=== PATIENT | female | born 1965 | race African-American/Black ===

== ENCOUNTER 2019-11-15 19:40 | Emergency (ER) | payer OTHER ==
--- NOTE | 2019-11-15 20:11 | EDM.PDOC ---
ED HPI GENERAL MEDICAL PROBLEM - General Chief Complaint: Gastrointestinal Problem Stated Complaint: RECTAL BLEEDING Time Seen by Provider: 11/15/19 19:52 Source of Information: Reports: Patient History Limitations: Reports: No Limitations - History of Present Illness INITIAL COMMENTS - FREE TEXT/NARRATIVE: Ms. Rudd is a very pleasant 54-year-old woman with a past medical history significant for obesity and diabetes, who now presents the ED stating that she has been constipated for the past 10 days. She has been drinking an herbal tea which ordinarily helps, but has not in this case. She states that she had some painless bright red rectal bleeding on 10/27/2019 or 10/28/2019, lasting about 3 days, then had additional painless maroon mucousy rectal bleeding today. She had a small, hard bowel movement today. She states that she has been feeling lightheaded when upright on and off for the past week. No chest pain or palpitations. No recent fever, chills, nausea , vomiting, or watery diarrhea. Here in the ED, the patient is initially found to be tachycardic at 110 bpm, otherwise, she is hemodynamically stable, afebrile, saturating 100% on room air. The patient states that she underwent a single EGD and colonoscopy around 2009, and that both were negative. She has not had a repeat since. The patient states that she Accu-Cheks twice a day, with her usual blood glucose between 110 and 140. Her most recent Accu-Chek was this morning, at 121. The patient's PCP is RANDAL Clemons. Her healthcare educator is Amaya Fletcher RN. - Related Data Allergies Allergy/AdvReac Type Severity Reaction Status Date / Time metformin Allergy Severe Hives Verified 11/15/19 19:54 Home Meds: Home Meds Liraglutide [Victoza] 1.8 mg SUBCUT DAILY 11/15/19 [History] Past Medical History Cardiovascular History: Reports: High Cholesterol (untreated) Genitourinary History: Reports: Urinary Incontinence (stress incontinence) Endocrine/Metabolic History: Reports: Diabetes, Type II, Obesity/BMI 30+ - Past Surgical History HEENT Surgical History: Reports: Oral Surgery (wisdom teeth extraction) GI Surgical History: Reports: Cholecystectomy (2013), Colonoscopy (x 1, around 2009), EGD (x 1, around 2009) Female Surgical History: Reports: Tubal Ligation Social & Family History - Tobacco Use Smoking Status *Q: Never Smoker - Caffeine Use Caffeine Use: Reports: Tea - Alcohol Use Alcohol Use History: Yes Alcohol Use Frequency: Rarely - Recreational Drug Use Recreational Drug Use: No - Living Situation & Occupation Living situation: Reports: Single, with Family 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 ED EXAM, GI/ABD - Physical Exam Exam: See Below Exam Limited By: No Limitations General Appearance: Alert, WD/WN, No Apparent Distress Eyes: Bilateral: Normal Appearance, EOMI Ears: Normal External Exam, Hearing Grossly Normal Nose: Normal Inspection Throat/Mouth: Normal Inspection, Normal Lips, Normal Voice, No Airway Compromise Head: Atraumatic, Normocephalic Neck: Normal Inspection, Full Range of Motion Respiratory/Chest: No Respiratory Distress, Lungs Clear, Normal Breath Sounds, No Accessory Muscle Use Cardiovascular: Normal Peripheral Pulses, Regular Rate, Rhythm, No Edema, No Gallop, No JVD, No Murmur, No Rub GI/Abdominal Exam: Normal Bowel Sounds, Soft, Non-Tender, No Organomegaly, No Distention, No Abnormal Bruit, No Mass (Female) Exam: Deferred Rectal (Female) Exam: Normal Rectal Tone, Heme + Stool (no stool in rectum, but smear grossly heme+), Hemorrhoids (3 nonthrombosed, nontender external) Back Exam: Normal Inspection, Full Range of Motion, NT Extremities: Normal Inspection, Normal Range of Motion, No Pedal Edema, Normal Capillary Refill Neurological: Alert, Oriented, Normal Cognition, No Motor/Sensory Deficits Psychiatric: Normal Affect Skin Exam: Warm, Dry, Intact, Normal Color, No Rash Course - Vital Signs Last Recorded V/S: Last Vital Signs Temp 37.0 C 11/15/19 19:48 Pulse 110 H 11/15/19 19:48 Resp 20 11/15/19 19:48 BP Pulse Ox 100 11/15/19 19:48 Orthostatic Blood Pressure [ 123/78 Standing] Orthostatic Blood Pressure [ 118/72 Supine] - Orders/Labs/Meds Orders: Active Orders 24 hr Category Date Time Status Hemoccult [Fecal Occult Blood Collection] [RC] Care 11/15/19 20:18 Active ASDIRECTED Orthostatic Vital Signs [RC] STAT Care 11/15/19 20:09 Active Labs: Laboratory Tests 11/15/19 11/15/19 11/15/19 Range/Units 20:20 20:20 20:20 WBC 8.71 (3.98-10.04) K/mm3 RBC 5.42 H (3.98-5.22) M/mm3 Hgb 10.1 L (11.2-15.7) gm/dl Hct 34.7 (34.1-44.9) % MCV 64.0 L (79.4-94.8) fl MCH 18.6 L (25.6-32.2) pg MCHC 29.1 L (32.2-35.5) g/dl RDW Std Deviation 40.9 (36.4-46.3) fL Plt Count 314 (182-369) K/mm3 MPV 11.5 (9.4-12.3) fl Neut % (Auto) 60.3 (34.0-71.1) % Lymph % (Auto) 29.2 (19.3-51.7) % Tift % (Auto) 8.0 (4.7-12.5) % Eos % (Auto) 1.8 (0.7-5.8) Baso % (Auto) 0.6 (0.1-1.2) % Neut # (Auto) 5.25 (1.56-6.13) K/mm3 Lymph # (Auto) 2.54 (1.18-3.74) K/mm3 Tift # (Auto) 0.70 H (0.24-0.36) K/mm3 Eos # (Auto) 0.16 (0.04-0.36) K/mm3 Baso # (Auto) 0.05 (0.01-0.08) K/mm3 Manual Slide Review Abnormal smear PT 10.3 (9.7-12.0) SECONDS INR 0.94 APTT 23 (22-31) SECONDS Sodium 135 L (136-145) mEq/L Potassium 4.0 (3.5-5.1) mEq/L Chloride 103 (98-107) mEq/L Carbon Dioxide 21 (21-32) mEq/L Anion Gap 15.0 (5-15) BUN 7 (7-18) mg/dL Creatinine 0.9 (0.55-1.02) mg/dL Est Cr Clr Drug Dosing 60.49 mL/min Estimated GFR (MDRD) > 60 (>60) mL/min BUN/Creatinine Ratio 7.8 L (14-18) Glucose 224 H (74-106) mg/dL Calcium 10.3 H (8.5-10.1) mg/dL Magnesium 1.7 L (1.8-2.4) mg/dl Total Bilirubin 0.3 (0.2-1.0) mg/dL AST 16 (15-37) U/L ALT 23 (14-59) U/L Alkaline Phosphatase 126 H (46-116) U/L Total Protein 8.1 (6.4-8.2) g/dl Albumin 3.6 (3.4-5.0) g/dl Globulin 4.5 gm/dL Albumin/Globulin Ratio 0.8 L (1-2) - Re-Assessments/Exams Free Text/Narrative Re-Assessment/Exam: 11/15/19 20:10 As above, the patient had some rectal bleeding a couple of weeks ago for a few days, then again today, associated with constipation. On examination, she has 3 nonthrombosed external hemorrhoids, and while there was no stool in the rectum , the smear was grossly heme positive. For today's purposes, I have ordered blood work and orthostatics. 11/15/19 20:17 The patient is not orthostatic. 11/15/19 21:03 The patient's CBC is remarkable for a Hgb mildly depressed at 10.1, but with a Hct normal at 34.7. The remainder of her CBC is unremarkable. Her CMP is remarkable for a sodium slightly depressed at 135, and a blood glucose elevated at 224. Her alkaline phosphatase is slightly elevated at 126, with the remainder of her CMP being unremarkable. Her magnesium level is slightly depressed at 1.7. Her coags are within normal limits. 11/15/19 21:14 Test results discussed with the patient. As above, hieu's labs are grossly unremarkable. I explained to the patient that she needs a colonoscopy to determine the source of her bleeding - whether from an internal hemorrhoid, diverticulosis, a colon polyp, telangiectasias, or an AV malformation. A colonoscopy will require a prep, and therefore cannot be done from the ED. The patient understood that. Since she sees Amaya Fletcher RN, as a healthcare educator, she would like to follow-up with Dr. Fletcher to arrange for a colonoscopy. In the meantime, I recommended that the patient purchase an [id number] enema +/- glycerine suppositories, to help relieve her current constipation. She should then begin taking [id number] Metamucil with plenty of water, to help prevent constipation, going forward. Departure - Departure Time of Disposition: 21:19 Disposition: Home, Self-Care 01 Condition: Good Clinical Impression: Lower GI bleed, Constipation - Discharge Information *PRESCRIPTION DRUG MONITORING PROGRAM REVIEWED*: Not Applicable *COPY OF PRESCRIPTION DRUG MONITORING REPORT IN PATIENT SMITH: Not Applicable Instructions: Constipation, Adult, [id number], Gastrointestinal Bleeding Referrals: Evelyn Mendez PA-C [Primary Care Provider] - Tyron Fletcher MD [Physician] - Forms: ED Department Discharge Additional Instructions: You were seen in the emergency room for recurrent rectal bleeding associated with constipation. Work-up in the ER included blood work and positional blood pressure checks. Your entire work-up was unremarkable. You did not require a blood transfusion or IV fluid. As explained, we are not able to determine the source of your bleeding. In order to do so, you need to undergo a colonoscopy. Please follow-up with Dr. Quincy Fletcher to arrange for an outpatient colonoscopy. To relieve your current constipation, we recommend that you purchase an over-the -counter enema, with or without some glycerin suppositories, and use as directed. To prevent constipation in the future, we recommend that you purchase over-the- counter Metamucil, and take with a lots of water, as directed. If any other problems, please do not hesitate to return to the ER. Sepsis Event Note - Evaluation Sepsis Screening Result: No Definite Risk - Focused Exam Vital Signs: Vital Signs Temp Pulse Resp Pulse Ox 11/15/19 19:48 37.0 C 110 H 20 100 Date Exam was Performed: 11/15/19 Time Exam was Performed: 23:44 - My Orders Last 24 Hours: My Active Orders 11/15/19 20:09 Orthostatic Vital Signs [RC] STAT 11/15/19 20:18 Hemoccult [Fecal Occult Blood Collection] [RC] ASDIRECTED - Assessment/Plan Last 24 Hours: My Active Orders 11/15/19 20:09 Orthostatic Vital Signs [RC] STAT 11/15/19 20:18 Hemoccult [Fecal Occult Blood Collection] [RC] ASDIRECTED
== END 2019-11-15 21:45 | disposition home or self-care (01) ==
LOC: JD.ED 19:40
DX: K92.2 Gastrointestinal hemorrhage, unspecified (principal); K59.00 Constipation, unspecified; E66.9 Obesity, unspecified; Z68.41 Body mass index [BMI] 40.0-44.9, adult; E11.9 Type 2 diabetes mellitus without complications; Z88.8 Allergy status to other drugs, medicaments and biological substances; Z79.84 Long term (current) use of oral hypoglycemic drugs
CPT/HCPCS: 36415; 80053; 83735; 85025; 85610; 85730; 99282; 99284

== ENCOUNTER 2020-01-05 06:45 | Day surgery (SDC) | payer OTHER ==
[~2020-01-05 06:45] MED LIST: Lactated Ringers 1,000 ML IV SCH; Lidocaine 1%/Sod Bicarbonate in NS 8.4% 1 ML Syringe IDERM PRN; Sodium Chloride 0.9% 10 ML Syringe FLUSH PRN
--- NOTE | 2020-01-05 07:28 | PCM.PREANE ---
Preanesthetic Assessment - Procedure Proposed Procedure: Colonoscopy - Anesthesia/Transfusion/Family Hx Anesthesia History: Prior Anesthesia Without Reaction Family History of Anesthesia Reaction: No Transfusion History: No Prior Transfusion(s) - Review of Systems General: No Symptoms Pulmonary: No Symptoms Cardiovascular: Dyspnea on Exertion Gastrointestinal: No Symptoms Neurological: No Symptoms Other: Reports: Diabetes (156 @ 0715), Thyroid Problems (hyperthyroid) - Physical Assessment NPO Status Date: 01/04/20 NPO Status Time: 20:00 Vital Signs: Last Vital Signs Temp 36.7 C 01/05/20 06:50 Pulse 97 01/05/20 06:50 Resp 16 01/05/20 06:50 BP 130/66 01/05/20 06:50 Pulse Ox 98 01/05/20 06:50 Height: 1.6 m Weight: 112.491 kg ASA Class: 2 Mental Status: Alert & Oriented x3 Airway Class: Mallampati = 1 Dentition: Reports: [place](s), Broken Tooth/Teeth (front top), Caries Thyro-Mental Finger Breadths: 2 Mouth Opening Finger Breadths: 3 ROM/Head Extension: Full Lungs: Clear to Auscultation, Normal Respiratory Effort Cardiovascular: Regular Rate, Regular Rhythm - Lab Values: Laboratory Last Values POC Glucose 153 mg/dL (70-105) H 01/05/20 07:09 COVID-19 PCR Not detected (NOT DETECT) 01/02/20 12:30 - Allergies Allergies/Adverse Reactions: Allergies Allergy/AdvReac Type Severity Reaction Status Date / Time metformin Allergy Mild Hives Verified 01/05/20 07:17 metronidazole [From Flagyl] Allergy Cannot Verified 01/05/20 07:17 Remember pioglitazone [From Actos] Allergy Itching Verified 01/05/20 07:17 - Anesthesia Plan Pre-Op Medication Ordered: None - Acknowledgements Anesthesia Type Planned: MAC Pt an Appropriate Candidate for the Planned Anesthesia: Yes Alternatives and Risks of Anesthesia Discussed w Pt/Guardian: Yes Pt/Guardian Understands and Agrees with Anesthesia Plan: Yes PreAnesthesia Questionnaire HEENT History: Reports: Impaired Vision Cardiovascular History: Reports: High Cholesterol Respiratory History: Reports: None Gastrointestinal History: Reports: Cholelithiasis, GERD, Other (See Below) Other Gastrointestinal History: hematochezia, constipation Genitourinary History: Reports: Urinary Incontinence MORTGAGE ASSISTANT History: Reports: None Musculoskeletal History: Reports: None Neurological History: Reports: None Psychiatric History: Reports: None Endocrine/Metabolic History: Reports: Diabetes, Type II, Hyperthyroidism, Obesity/BMI 30+ Hematologic History: Reports: None Immunologic History: Reports: None Oncologic (Cancer) History: Reports: None Dermatologic History: Reports: None - Infectious Disease History Infectious Disease History: Reports: None - Past Surgical History Head Surgeries/Procedures: Reports: None HEENT Surgical History: Reports: Oral Surgery Other HEENT Surgeries/Procedures: wisdom teeth Cardiovascular Surgical History: Reports: None Respiratory Surgical History: Reports: None GI Surgical History: Reports: Cholecystectomy, Colonoscopy, EGD Female Surgical History: Reports: Tubal Ligation Male Surgical History: Reports: None Neurological Surgical History: Reports: None Musculoskeletal Surgical History: Reports: None Oncologic Surgical History: Reports: None Dermatological Surgical History: Reports: None - SUBSTANCE USE Smoking Status *Q: Never Smoker Tobacco Use Within Last Twelve Months: No Second Hand Smoke Exposure: No Days Per Week of Alcohol Use: 1 Number of Drinks Per Day: 0 Total Drinks Per Week: 0 Recreational Drug Use History: No - HOME MEDS Home Medications: Home Meds Ozempic 1 mg SQ Q7D 01/04/20 [History] Rosuvastatin Calcium 20 mg PO DAILY 01/04/20 [History] - CURRENT (IN HOUSE) MEDS Current Meds: Current Medications Lactated Ringer's (Ringers, Lactated) 1,000 mls @ 125 mls/hr IV ASDIRECTED NIK Stop: 01/05/20 23:00 Last Admin: 01/05/20 07:22 Dose: 125 mls/hr Documented by: Lidocaine/Sodium Bicarbonate (Buffered Lidocaine 1% In Ns 8.4%) 0.25 ml IDERM ONETIME PRN PRN Reason: Prior to IV Start Stop: 01/05/20 18:00 Last Admin: 01/05/20 07:22 Dose: 0.25 ml Documented by: Sodium Chloride (Saline Flush) 10 ml FLUSH ASDIRECTED PRN PRN Reason: Keep Vein Open Stop: 01/05/20 18:00
[2020-01-05] MEDS ORDERED: fentaNYL 100 MCG/2 ML SDV ONE (07:40)
[2020-01-05] MEDS ORDERED: Propofol 200 MG/20 ML SDV ONE ×2 (07:40→08:04)
[2020-01-05] MEDS ORDERED: Midazolam 1 MG/ML 2 ML SDV ONE (07:40)
[2020-01-05] MEDS ORDERED: Ondansetron 4 MG/2 ML SDV ONE (07:40)
[2020-01-05] MEDS ORDERED: Lidocaine 1% 4 ML ONE (07:43)
[2020-01-05] MEDS ORDERED: Labetalol 100 MG/20 ML MDV ONE (08:16)
--- NOTE | 2020-01-05 08:35 | PCM48HPAN ---
Post Anesthesia Note - EVALUATION WITHIN 48HRS OF ANESTHETIC Vital Signs in Normal Range: Yes Patient Participated in Evaluation: Yes Respiratory Function Stable: Yes Airway Patent: Yes Cardiovascular Function Stable: Yes Hydration Status Stable: Yes Pain Control Satisfactory: Yes Nausea and Vomiting Control Satisfactory: Yes Mental Status Recovered: Yes Vital Signs: Last Vital Signs Temp 36.7 C 01/05/20 06:50 Pulse 97 01/05/20 06:50 Resp 16 01/05/20 06:50 BP 130/66 01/05/20 06:50 Pulse Ox 98 01/05/20 06:50 - COMMENTS/OBSERVATIONS Free Text/Narrative:: no anesthesia complications noted
--- NOTE | 2020-01-05 08:37 | PCM.OPNOTE ---
- General Post-Op/Procedure Note Date of Surgery/Procedure: 01/05/20 Operative Procedure(s): Colonoscopy with cold forceps biopsy Findings: Anal Fissure, Grade I internal hemorrhoids, Mild Diverticulosis, Colon polyps x 3 Pre Op Diagnosis: Hematochezia, Chronic Constipation Post-Op Diagnosis: Same Anesthesia Technique: MAC Primary Surgeon: Kaushal Lam Anesthesia Provider: Clemente Brothers EBL in mLs: 5 Complications: None Condition: Good Free Text/Narrative:: After the patient gave verbal and written consent she was placed on blood pressure and pulse ox monitoring. She was given iv sedation which she tolerated well. The olympus colonoscope was inserted per rectum and advanced to the cecum without difficulty. The ileocecal valve and appendiceal orfice were imaged documenting cecal intubation. The scope was slowly withdrawn. The mucosal surfaces were carefully examined. The prep was good, the views were good. Random colon forceps biopsies were taken of the ascending, transverse, sigmoid and rectum. Mild sigmoid diverticulosis was noted. There were 3 small 2-3 mm colon polyps in the diverticulosis and rectum noted and removed with cold forceps biopsy. The scope was retroflexed in the rectum and Grade I internal hemorrhoids were noted. The scope was removed, an external anal examination showed anal fissuring. There was hemostasis at the end of the procedure the patient tolerated the procedure well without complication.
== END 2020-01-05 09:15 | disposition home or self-care (01) ==
LOC: JD.SDS 06:45
PROVIDERS: ATTEND Family Medicine
DX: D12.8 Benign neoplasm of rectum (principal); K63.89 Other specified diseases of intestine; K57.30 Diverticulosis of large intestine without perforation or abscess without bleeding; K64.0 First degree hemorrhoids; K60.2 Anal fissure, unspecified; K59.09 Other constipation; E21.3 Hyperparathyroidism, unspecified; E11.9 Type 2 diabetes mellitus without complications; K21.9 Gastro-esophageal reflux disease without esophagitis; E78.00 Pure hypercholesterolemia, unspecified; E66.9 Obesity, unspecified; Z90.49 Acquired absence of other specified parts of digestive tract; Z88.8 Allergy status to other drugs, medicaments and biological substances; Z79.899 Other long term (current) drug therapy; Z11.59 Encounter for screening for other viral diseases; Z68.42 Body mass index [BMI] 45.0-49.9, adult
CPT/HCPCS: 45380; 82962; 87635; J2001; J2250; J2405; J2704; J3010; J3490; J7120; 00811; U0002

== ENCOUNTER 2021-01-26 10:40 | Emergency (ER) | payer MEDICAID, OTHER ==
--- NOTE | 2021-01-26 11:11 | EDM.PDOC ---
ED HPI GENERAL MEDICAL PROBLEM - General Chief Complaint: Abdominal Pain Stated Complaint: ABDOMINAL PAIN Time Seen by Provider: 01/26/21 11:01 - History of Present Illness INITIAL COMMENTS - FREE TEXT/NARRATIVE: 55-year-old female presents to the emergency room for further evaluation of abdominal pain. She was sent here from the walk-in clinic. Patient is going on a 2-day history of epigastric discomfort and periumbilical d iscomfort. Patient has not had symptoms like this in the past she is not had reflux in the past. She was evaluated in the walk-in clinic today and found to have a very elevated C-reactive protein lipase was normal. Dr. Pink did call me, and it sounds like the patient would benefit from a CAT scan for further evaluation. Lab work scratch that Lab work done at [place] [facility] count is 9900 hemoglobin hematocrit of 8.8 and 29.7% respectively platelet count 250,000 automated differential is normal chemistry showed glucose of 281 BUN 8 creatinine 0.89 sodium 132 potassium 4.1 chloride 103 CO2 18 calcium 10.8 total protein 7.6 albumin 3.8 alk phos elevated at 213 transaminases are elevated AST is 224 ALT 241. epigastric Pain Score (Numeric/FACES): 5 - Related Data Allergies Allergy/AdvReac Type Severity Reaction Status Date / Time metformin Allergy Mild Hives Verified 01/26/21 10:52 metronidazole [From Flagyl] Allergy Cannot Verified 01/26/21 10:52 Remember pioglitazone [From Actos] Allergy Itching Verified 01/26/21 10:52 Home Meds: Home Meds Ozempic 1 mg SQ Q7D 01/04/20 [History] Rosuvastatin Calcium 20 mg PO DAILY 01/04/20 [History] Pantoprazole Sodium [Protonix] 40 mg PO QAM #30 tablet. 01/26/21 [Rx] Sucralfate [Carafate] 1 gm PO QIDACANDBED #30 tab 01/26/21 [Rx] Past Medical History HEENT History: Reports: Impaired Vision Cardiovascular History: Reports: High Cholesterol Respiratory History: Reports: None Gastrointestinal History: Reports: Cholelithiasis, GERD, Other (See Below) Other Gastrointestinal History: hematochezia, constipation Genitourinary History: Reports: Urinary Incontinence DEVELOPMENT EDUCATOR History: Reports: None Musculoskeletal History: Reports: None Neurological History: Reports: None Psychiatric History: Reports: None Endocrine/Metabolic History: Reports: Diabetes, Type II, Hyperthyroidism, Obesity/BMI 30+ Hematologic History: Reports: None Immunologic History: Reports: None Oncologic (Cancer) History: Reports: None Dermatologic History: Reports: None - Infectious Disease History Infectious Disease History: Reports: None - Past Surgical History Head Surgeries/Procedures: Reports: None HEENT Surgical History: Reports: Oral Surgery Other HEENT Surgeries/Procedures: wisdom teeth Cardiovascular Surgical History: Reports: None Respiratory Surgical History: Reports: None GI Surgical History: Reports: Cholecystectomy, Colonoscopy, EGD Female Surgical History: Reports: Tubal Ligation Neurological Surgical History: Reports: None Musculoskeletal Surgical History: Reports: None Oncologic Surgical History: Reports: None Dermatological Surgical History: Reports: None Social & Family History - Tobacco Use Tobacco Use Status *Q: Never Tobacco User - Caffeine Use Caffeine Use: Reports: None - Recreational Drug Use Recreational Drug Use: No - Living Situation & Occupation Living situation: Reports: Single, with Family 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) ED ROS GENERAL - Review of Systems Review Of Systems: See Below Constitutional: Reports: No Symptoms. Denies: Fever, Chills HEENT: Reports: No Symptoms Respiratory: Reports: No Symptoms Cardiovascular: Reports: No Symptoms Endocrine: Reports: No Symptoms GI/Abdominal: Reports: Abdominal Pain ED EXAM, GI/ABD - Physical Exam Exam: See Below Exam Limited By: No Limitations General Appearance: Alert, No Apparent Distress, Obese Head: Atraumatic, Normocephalic Neck: Normal Inspection, Supple, Non-Tender, Full Range of Motion Respiratory/Chest: No Respiratory Distress, Lungs Clear, Normal Breath Sounds Cardiovascular: Regular Rate, Rhythm, No Edema, No Murmur GI/Abdominal Exam: Normal Bowel Sounds, Soft, Other (Sniffing and upper abdominal pain she will not let me palpate does not appear to have rebound or rigidity the however) #1 Interpretation EKG Date: 01/26/21 Rhythm: NSR Rate (Beats/Min): 74 [place]: Other (Borderline left axis) P-Wave: Present (Prominent R wave) QRS: Other (Prominent R wave V2 consider early transition versus left ventricular hypertrophy) ST-T: Other (Minimal nonspecific nondiagnostic changes) QT: Normal Comparison: NA - No Prior EKG EKG Interpretation Comments: Abnormal EKG Course - Vital Signs Last Recorded V/S: Last Vital Signs Temp 36.6 C 01/26/21 10:49 Pulse 83 01/26/21 10:49 Resp 18 01/26/21 10:49 BP 147/80 H 01/26/21 10:49 Pulse Ox 95 01/26/21 10:49 - Orders/Labs/Meds Orders: Active Orders 24 hr Category Date Time Status EKG Documentation Completion [RC] STAT Care 01/26/21 11:27 Active Abdomen Pelvis w Cont [CT] Stat Exams 01/26/21 11:12 Taken Lactated Ringers [Ringers, Lactated] 1,000 ml Med 01/26/21 11:15 Active IV ASDIRECTED Sodium Chloride 0.9% [Saline Flush] Med 01/26/21 11:30 Active 10 ml FLUSH ASDIRECTED Medication Orders Lactated Ringer's (Ringers, Lactated) 1,000 mls @ 150 mls/hr IV ASDIRECTED NIK Sodium Chloride (Sodium Chloride 0.9% 10 Ml Syringe) 10 ml FLUSH ASDIRECTED NIK Last Admin: 01/26/21 12:49 Dose: 10 ml Documented by: VAL Labs: Laboratory Tests 01/26/21 01/26/21 Range/Units 11:40 16:05 Troponin I < 0.017 (0.00-0.056) ng/mL Urine Color Yellow (Yellow) Urine Appearance Clear (Clear) Urine pH 6.5 (5.0-8.0) Ur Specific [place] 1.015 (1.005-1.030) Urine Protein Negative (Negative) Urine Glucose (UA) 2+ H (Negative) Urine Ketones Negative (Negative) Urine Occult Blood 2+ H (Negative) Urine Nitrite Negative (Negative) Urine Bilirubin Negative (Negative) Urine Urobilinogen 0.2 (0.2-1.0) Ur Leukocyte Esterase Negative (Negative) Urine RBC 0-5 (0-5) /hpf Urine WBC 0-5 (0-5) /hpf Ur Squamous Epith Cells 0-5 (0-5) /hpf Urine Bacteria Few (FEW) /hpf Urine Mucus Few (FEW) /hpf Meds: Medications Generic Name Dose Route Start Last Admin Trade Name Freq PRN Reason Stop Dose Admin Lactated Ringer's 1,000 mls @ 150 mls/hr 01/26/21 11:15 Ringers, Lactated IV ASDIRECTED NIK Sodium Chloride 10 ml 01/26/21 11:30 01/26/21 12:49 Sodium Chloride 0.9% 10 Ml Syringe FLUSH 10 ml ASDIRECTED NIK Administration Discontinued Medications Generic Name Dose Route Start Last Admin Trade Name Adán PRN Reason Stop Dose Admin Al Hydroxide/Mg Hydroxide 30 0 ml 01/26/21 14:01 01/26/21 14:26 ml/ Lidocaine HCl 15 ml PO 01/26/21 14:02 45 ml ONETIME ONE Administration Diatrizoate Meglum/Diatrizoate Sod 45 ml 01/26/21 11:25 01/26/21 12:48 Diatrizoate Meglumine/Diatrizoate Sodium 37% 120 Ml Bottle PO 01/26/21 11:26 45 ml ONETIME ONE Administration Hydromorphone HCl 0.5 mg 01/26/21 11:28 01/26/21 11:43 Hydromorphone 0.5 Mg/0.5 Ml Syringe IVPUSH 01/26/21 11:29 0.5 mg ONETIME ONE Administration Lactated Ringer's 500 mls @ 999 mls/hr 01/26/21 11:14 01/26/21 11:42 Ringers, Lactated IV 01/26/21 11:44 999 mls/hr .BOLUS ONE Administration Iopamidol 100 ml 01/26/21 11:25 01/26/21 12:49 Iopamidol 612 Mg/Ml 100 Ml Bottle IVPUSH 01/26/21 11:26 100 ml ONETIME ONE Administration Iopamidol 50 ml 01/26/21 11:25 01/26/21 12:49 Iopamidol 612 Mg/Ml 50 Ml Sdv IVPUSH 01/26/21 11:26 25 ml ONETIME ONE Administration Ondansetron HCl 4 mg 01/26/21 11:28 01/26/21 11:43 Ondansetron 4 Mg/2 Ml Sdv IVPUSH 01/26/21 11:29 4 mg ONETIME ONE Administration Pantoprazole Sodium 40 mg 01/26/21 17:12 01/26/21 17:36 Pantoprazole 40 Mg Vial IVPUSH 01/26/21 17:13 40 mg ONETIME ONE Administration Sucralfate 1 gm 01/26/21 17:12 01/26/21 17:36 Sucralfate Suspension 1 Gm/10 Ml Cup PO 01/26/21 17:13 1 gm ONETIME ONE Administration - Re-Assessments/Exams Free Text/Narrative Re-Assessment/Exam: 01/26/21 17:58 Work-up was basically started the walk-in clinic over at [place]. I did when I recheck a urinalysis and there is no evidence of infection there she does have 2+ blood noted and 2+ glucose noted she is a diabetic and her blood sugar at [place] was elevated. I did check a troponin and an EKG that is nondiagnostic troponin was normal. Abdominal pelvic CT showed no acute changes. She has some probable uterine leiomyomas postoperative changes from her gallbladder and anterior abdominal wall hernia none containing bowel and a small cyst on the left ovary. Given the patient's history and her physical examination then tried her on a GI cocktail which was remarkably good for her symptoms. At this point the patient be started on Carafate and Protonix we will discharge home with close follow-up in the clinic to discuss all of this with her. She believes the blood in her urine is probably because of her cycle. Departure - Departure Time of Disposition: 18:01 Disposition: Home, Self-Care 01 Clinical Impression: Abdominal pain, Dyspepsia and disorder of function of stomach - Discharge Information Referrals: Evelyn Mendez PA-C [Primary Care Provider] - Forms: ED Department Discharge Additional Instructions: Return to the emergency room with any questions problems or worsening symptoms. You have been started on 2 medications the first 1 is Protonix take this 30 to 60 minutes before your morning meal once daily. While taking the Carafate take this an hour before your morning meal. You have been started on Carafate you will take this for a little over 7 days 4 times daily before each meal and at bedtime. Take this immediately before each meal and at bedtime you are on this to give the Protonix time to take effect. Both your prescriptions have been sent to [facility] in the [employer] [facility]. Follow-up with your regular healthcare provider the middle of this next week for recheck. Sepsis Event Note (ED) - Evaluation Sepsis Screening Result: No Definite Risk - Focused Exam Vital Signs: Vital Signs Temp Pulse Resp BP Pulse Ox 01/26/21 10:49 36.6 C 83 18 147/80 H 95 - My Orders Last 24 Hours: My Active Orders 01/26/21 11:12 Abdomen Pelvis w Cont [CT] Stat 01/26/21 11:15 Lactated Ringers [Ringers, Lactated] 1,000 ml IV ASDIRECTED 01/26/21 11:27 EKG Documentation Completion [RC] STAT 01/26/21 11:30 Sodium Chloride 0.9% [Saline Flush] 10 ml FLUSH ASDIRECTED - Assessment/Plan Last 24 Hours: My Active Orders 01/26/21 11:12 Abdomen Pelvis w Cont [CT] Stat 01/26/21 11:15 Lactated Ringers [Ringers, Lactated] 1,000 ml IV ASDIRECTED 01/26/21 11:27 EKG Documentation Completion [RC] STAT 01/26/21 11:30 Sodium Chloride 0.9% [Saline Flush] 10 ml FLUSH ASDIRECTED
[2021-01-26] MEDS ORDERED: Lactated Ringers 500 ML IV ONE (11:14)
[2021-01-26] MEDS ORDERED: Lactated Ringers 1,000 ML IV SCH (11:15)
[2021-01-26] MEDS ORDERED: Iopamidol 612 MG/ML 50 ML SDV IVPUSH ONE (11:25)
[2021-01-26] MEDS ORDERED: Diatrizoate Meglumine/Diatrizoate Sodium 37% 120 ML Bottle PO ONE (11:25)
[2021-01-26] MEDS ORDERED: Iopamidol 612 MG/ML 100 ML Bottle IVPUSH ONE (11:25)
[2021-01-26] MEDS ORDERED: Ondansetron 4 MG/2 ML SDV IVPUSH ONE (11:28)
[2021-01-26] MEDS ORDERED: HYDROmorphone 0.5 MG/0.5 ML Syringe IVPUSH ONE (11:28)
[2021-01-26] MEDS ORDERED: Sodium Chloride 0.9% 10 ML Syringe FLUSH SCH (11:30)
[2021-01-26] MEDS ORDERED: Alum Hydrox/Mag Hydrox/Simeth 30 ML, Lidocaine 2% 15 ML PO ONE ×2 (14:01)
[2021-01-26] MEDS ORDERED: Sucralfate Suspension 1 GM/10 ML Cup PO ONE ×3 (17:12→18:05)
[2021-01-26] MEDS ORDERED: Pantoprazole 40 MG Vial IVPUSH ONE (17:12)
[2021-01-26] MEDS ORDERED: Pantoprazole 40 MG Tab.CR PO ONE (18:02)
--- NOTE | 2021-01-26 21:13 | CT ---
CT abdomen and pelvis Technique: Multiple axial sections were obtained from above the dome of the diaphragm inferiorly through the pubic symphysis. Intravenous and oral contrast was utilized. Delayed images were obtained through the bladder. Comparison: No prior abdomen or pelvis study is available. Findings: Liver shows no focal abnormality. Prior cholecystectomy is noted. Air is noted within the biliary tree within the liver. This most likely represents prior sphincterotomy. Common bile duct measures about 9 mm which likely is residual from prior cholecystectomy. Spleen size appears within normal limits at this time. Adrenal glands show no nodule. No abnormality is appreciated within the pancreas. Kidneys show symmetric contrast enhancement without hydronephrosis or mass. Aorta shows no aneurysm. No retroperitoneal adenopathy is seen. Appendix is seen which is normal. Fat-containing umbilical hernia is noted. Additional fat-containing hernia is seen superior to the umbilicus. This hernia measures about 8 mm in size and hernia is approximately 5 cm in size. No additional abdominal wall abnormality is appreciated. Left side of the uterus shows a low density finding measuring 3.7 cm which most likely represents a leiomyoma. Small physiologic cystic areas are seen within both ovaries. Incidental tampon is noted within the vagina. No free fluid or inflammatory change is appreciated. Delayed images show contrast within the distal ureters and within the bladder. Bone window settings were reviewed. Slight vacuum phenomena is seen within the L5-S1 disc. Mild scattered endplate osteophytes are seen. Impression: 1. Findings as noted above. 2. Nothing acute is seen on CT study of the abdomen and pelvis. Diagnostic code #2 I agree with preliminary report from [facility], finalized on 01/26/21, 2:42 PM CDT, code 1
== END 2021-01-26 18:25 | disposition home or self-care (01) ==
LOC: JD.ED 10:40
DX: R10.13 Epigastric pain (principal); K21.9 Gastro-esophageal reflux disease without esophagitis; E78.00 Pure hypercholesterolemia, unspecified; E66.9 Obesity, unspecified; Z68.30 Body mass index [BMI] 30.0-30.9, adult; Z88.8 Allergy status to other drugs, medicaments and biological substances; Z79.899 Other long term (current) drug therapy; Z68.41 Body mass index [BMI] 40.0-44.9, adult
CPT/HCPCS: 36415; 74177; 81001; 84484; 93005; 96374; 96375; 99284; A9270; C9113; J1170; J2405; J7120; Q9963; Q9967; 93010; 99283

== ENCOUNTER 2021-02-17 03:31 | Emergency (ER) | payer MEDICAID ==
[2021-02-17] MEDS ORDERED: HYDROmorphone 1 MG/ML Syringe IVPUSH ONE (04:18)
[2021-02-17] MEDS ORDERED: Ondansetron 4 MG/2 ML SDV IVPUSH ONE (04:18)
[2021-02-17] MEDS ORDERED: Sodium Chloride 0.9% 1,000 ML IV SCH (04:30)
--- NOTE | 2021-02-17 04:33 | EDM.PDOC ---
<Villa Barraza - Last Filed: 02/17/21 08:32> ED HPI GENERAL MEDICAL PROBLEM - General Chief Complaint: Abdominal Pain Stated Complaint: ABDOMINAL PAIN Time Seen by Provider: 02/17/21 03:58 - Related Data Allergies Allergy/AdvReac Type Severity Reaction Status Date / Time metformin Allergy Mild Hives Verified 02/17/21 03:39 metronidazole [From Flagyl] Allergy Cannot Verified 02/17/21 03:39 Remember pioglitazone [From Actos] Allergy Itching Verified 02/17/21 03:39 Home Meds: Home Meds Ozempic 1 mg SQ Q7D 01/04/20 [History] Rosuvastatin Calcium 20 mg PO DAILY 01/04/20 [History] Pantoprazole Sodium [Protonix] 40 mg PO QAM #30 tablet. 01/26/21 [Rx] Sucralfate [Carafate] 1 gm PO QIDACANDBED #30 tab 01/26/21 [Rx] Course - Re-Assessments/Exams Free Text/Narrative Re-Assessment/Exam: Serum GGT is 709. COVID-19 screen is also negative. 02/17/21 08:32 Departure - Departure Disposition: DC/Tfer to [facility] 02 Clinical Impression: Choledocholithiasis Hyperglycemia due to type 2 diabetes mellitus Qualifiers: Diabetes mellitus terminal operator insulin use: without longterm use Qualified Code(s): E11.65 - Type 2 diabetes mellitus with hyperglycemia - Discharge Information Referrals: Evelyn Mendez PA-C [Primary Care Provider] - Forms: ED Department Discharge <Danielito Sepulveda - Last Filed: 02/19/21 03:07> ED HPI GENERAL MEDICAL PROBLEM - General Source of Information: Reports: Patient, Old Records (ED 01/26/2021) History Limitations: Reports: No Limitations - History of Present Illness INITIAL COMMENTS - FREE TEXT/NARRATIVE: Ms. Rudd is a very pleasant 55-year-old woman who now presents to the ED with epigastric pain and nausea and vomiting that she states has been coming and going ever since she was last seen in this ED on 01/26/2021. Medical records from 01/26/2021 indicate that the patient reported she had been experiencing epigastric and periumbilical discomfort for 2 days. She had been seen at [facility], where a work-up included a CBC and CMP, both of which were grossly unremarkable. She was then sent to this ED for additional work-up, including a troponin level, a urinalysis, a CT of the abdomen and pelvis with oral and IV contrast, and an ECG. Her work-up was grossly unremarkable, with the CT scan finding no acute abnormalities. She was discharged home with prescriptions for Protonix and sucralfate, however, she reports to me at this time that she never filled the prescription for Protonix, although she has been taking the sucralfate 4 times a day. She has also been taking [id number] MiraLAX to address her chronic constipation. The patient states that she then followed up with her PCP this past 02/12/2021. She states that her PCP wanted her to follow-up with a Surgeon, however, the patient resisted, stating that she would go if her pain recurred. The patient states that her epigastric pain has persisted. She is unable to describe the character. She states that when present, it typically lasts a few hours, and occurs only once a day. Here in the ED this morning, the patient is found to be hemodynamically stable, afebrile, saturating 97% on room air. She appears to be somewhat depressed, keeping her back to me and speaking in a very low volume. She is in no acute distress. Other than her abdominal pain, nausea, vomiting, and constipation, the patient denies having a recent fever, chills, sore throat, ear pain, nasal or sinus congestion, cough, dyspnea, chest pain, palpitations, diarrhea, urinary symptoms, recent weight gain or weight loss, recent bloody bowel movements or black bowel movements, recent joint aches, headaches, or rashes. The patient's PCP is RANDAL Clemons. She has received 2 COVID vaccinations. Epigastric Pain Score (Numeric/FACES): 10 Past Medical History HEENT History: Reports: Impaired Vision Cardiovascular History: Reports: High Cholesterol Gastrointestinal History: Reports: GERD Genitourinary History: Reports: Urinary Incontinence (stress incontinence) Endocrine/Metabolic History: Reports: Diabetes, Type II, Obesity/BMI 30+ - Past Surgical History HEENT Surgical History: Reports: Oral Surgery Other HEENT Surgeries/Procedures: wisdom teeth GI Surgical History: Reports: Cholecystectomy (2010), Colonoscopy (x 2), EGD (x 1) Female Surgical History: Reports: Tubal Ligation Social & Family History - Tobacco Use Tobacco Use Status *Q: Never Tobacco User - Caffeine Use Caffeine Use: Reports: None - Alcohol Use Alcohol Use History: Yes Alcohol Use Frequency: Socially - Recreational Drug Use Recreational Drug Use: No - Living Situation & Occupation Living situation: Reports: Single, Alone 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 ED EXAM, GI/ABD - Physical Exam Exam: See Below Exam Limited By: Other (The patient instructed me to not palpate her upper abdomen, and when I attempted to her, she returned my hand and gently pulled it away) General Appearance: Alert, WD/WN, No Apparent Distress Eyes: Bilateral: Normal Appearance, EOMI Ears: Normal External Exam, Hearing Grossly Normal Nose: Normal Inspection Throat/Mouth: Normal Inspection, Normal Lips, Normal Voice, No Airway Compromise Head: Atraumatic, Normocephalic Neck: Normal Inspection, Full Range of Motion Respiratory/Chest: No Respiratory Distress, Lungs Clear, Normal Breath Sounds, No Accessory Muscle Use Cardiovascular: Normal Peripheral Pulses, Regular Rate, Rhythm, No Gallop, No JVD, No Murmur, No Rub GI/Abdominal Exam: Normal Bowel Sounds, Soft, Non-Tender (To the lower abdomen, but I cannot really comment on the upper abdomen, as the patient pulls my hand a way), No Organomegaly, No Distention, No Abnormal Bruit, No Mass Back Exam: Normal Inspection, Full Range of Motion, NT Extremities: Normal Inspection, Normal Range of Motion, Normal Capillary Refill Neurological: Alert, Oriented, Normal Cognition, No Motor/Sensory Deficits Psychiatric: Depressed Mood Skin Exam: Warm, Dry, Intact, Normal Color, No Rash Course - Vital Signs Last Recorded V/S: Last Vital Signs Temp 35.8 C L 02/17/21 03:40 Pulse 87 02/17/21 03:40 Resp 20 02/17/21 03:40 BP 126/65 02/17/21 03:40 Pulse Ox 97 02/17/21 03:40 - Orders/Labs/Meds Labs: Laboratory Tests 02/17/21 02/17/21 02/17/21 Range/Units 04:00 04:35 04:35 WBC 17.32 H (3.98-10.04) K/mm3 RBC 5.38 H (3.98-5.22) M/mm3 Hgb 9.0 L (11.2-15.7) gm/dl Hct 31.8 L (34.1-44.9) % MCV 59.1 L D (79.4-94.8) fl MCH 16.7 L (25.6-32.2) pg MCHC 28.3 L (32.2-35.5) g/dl RDW Std Deviation 39.5 (36.4-46.3) fL Plt Count 358 (182-369) K/mm3 MPV TNP Neutrophils % (Manual) 89 H (40-60) % Band Neutrophils % 1 (0-10) % Lymphocytes % (Manual) 8 L (20-40) % Atypical Lymphs % 0 % Monocytes % (Manual) 2 (2-10) % Eosinophils % (Manual) 0 L (0.7-5.8) % Basophils % (Manual) 0 L (0.1-1.2) Platelet Estimate Adequate Plt Morphology Comment See note Hypochromasia 2+ moderate Poikilocytosis 1+ slight Anisocytosis 2+ moderate Tear Drop Cells 1+ slight Ovalocytes 1+ slight RBC Morph Comment Abnormal Sodium 139 (136-145) mEq/L Potassium 3.8 (3.5-5.1) mEq/L Chloride 102 (98-107) mEq/L Carbon Dioxide 22 (21-32) mEq/L Anion Gap 18.8 H (5-15) BUN 8 (7-18) mg/dL Creatinine 0.9 (0.55-1.02) mg/dL Est Cr Clr Drug Dosing 62.42 mL/min Estimated GFR (MDRD) > 60 (>60) mL/min BUN/Creatinine Ratio 8.9 L (14-18) Glucose 388 H (70-99) mg/dL Calcium 10.3 H (8.5-10.1) mg/dL Magnesium 1.7 L (1.8-2.4) mg/dL Total Bilirubin 1.2 H (0.2-1.0) mg/dL GGT (5-55) U/L AST 288 H (15-37) U/L ALT 168 H (14-59) U/L Alkaline Phosphatase 291 H (46-116) U/L C-Reactive Protein 1.1 H* (<1.0) mg/dL Total Protein 8.1 (6.4-8.2) g/dl Albumin 3.5 (3.4-5.0) g/dl Globulin 4.6 gm/dL Albumin/Globulin Ratio 0.8 L (1-2) Lipase 84 (73-393) U/L Urine Color Yellow (Yellow) Urine Appearance Clear (Clear) Urine pH 5.5 (5.0-8.0) Ur Specific [place] 1.015 (1.005-1.030) Urine Protein Negative (Negative) Urine Glucose (UA) 3+ H (Negative) Urine Ketones 1+ H (Negative) Urine Occult Blood Negative (Negative) Urine Nitrite Negative (Negative) Urine Bilirubin Negative (Negative) Urine Urobilinogen 1.0 (0.2-1.0) Ur Leukocyte Esterase Negative (Negative) SARS-CoV-2 RNA (RAVI) (NEGATIVE) 02/17/21 02/17/21 Range/Units 04:35 07:03 WBC (3.98-10.04) K/mm3 RBC (3.98-5.22) M/mm3 Hgb (11.2-15.7) gm/dl Hct (34.1-44.9) % MCV (79.4-94.8) fl MCH (25.6-32.2) pg MCHC (32.2-35.5) g/dl RDW Std Deviation (36.4-46.3) fL Plt Count (182-369) K/mm3 MPV Neutrophils % (Manual) (40-60) % Band Neutrophils % (0-10) % Lymphocytes % (Manual) (20-40) % Atypical Lymphs % % Monocytes % (Manual) (2-10) % Eosinophils % (Manual) (0.7-5.8) % Basophils % (Manual) (0.1-1.2) Platelet Estimate Plt Morphology Comment Hypochromasia Poikilocytosis Anisocytosis Tear Drop Cells Ovalocytes RBC Morph Comment Sodium (136-145) mEq/L Potassium (3.5-5.1) mEq/L Chloride (98-107) mEq/L Carbon Dioxide (21-32) mEq/L Anion Gap (5-15) BUN (7-18) mg/dL Creatinine (0.55-1.02) mg/dL Est Cr Clr Drug Dosing mL/min Estimated GFR (MDRD) (>60) mL/min BUN/Creatinine Ratio (14-18) Glucose (70-99) mg/dL Calcium (8.5-10.1) mg/dL Magnesium (1.8-2.4) mg/dL Total Bilirubin (0.2-1.0) mg/dL GGT 709 H (5-55) U/L AST (15-37) U/L ALT (14-59) U/L Alkaline Phosphatase (46-116) U/L C-Reactive Protein (<1.0) mg/dL Total Protein (6.4-8.2) g/dl Albumin (3.4-5.0) g/dl Globulin gm/dL Albumin/Globulin Ratio (1-2) Lipase (73-393) U/L Urine Color (Yellow) Urine Appearance (Clear) Urine pH (5.0-8.0) Ur Specific [place] (1.005-1.030) Urine Protein (Negative) Urine Glucose (UA) (Negative) Urine Ketones (Negative) Urine Occult Blood (Negative) Urine Nitrite (Negative) Urine Bilirubin (Negative) Urine Urobilinogen (0.2-1.0) Ur Leukocyte Esterase (Negative) SARS-CoV-2 RNA (RAVI) Negative (NEGATIVE) Meds: Medications Discontinued Medications Generic Name Dose Route Start Last Admin Trade Name Freq PRN Reason Stop Dose Admin Diatrizoate Meglum/Diatrizoate Sod 120 ml 02/17/21 05:39 02/17/21 05:53 Diatrizoate Meglumine/Diatrizoate Sodium 37% 120 Ml Bottle PO 02/17/21 05:40 60 ml ONETIME ONE Administration Hydromorphone HCl 1 mg 02/17/21 04:18 02/17/21 04:35 Hydromorphone 1 Mg/Ml Syringe IVPUSH 02/17/21 04:19 1 mg ONETIME ONE Administration Sodium Chloride 1,000 mls @ 150 mls/hr 02/17/21 04:30 02/17/21 04:34 Normal Saline IV 150 mls/hr ASDIRECTED NIK Administration Cefepime HCl 2 gm/ Premix 50 mls @ 100 mls/hr 02/17/21 07:14 02/17/21 07:34 IV 08/30/21 07:43 100 mls/hr ONETIME STA Administration Iopamidol 100 ml 02/17/21 05:39 02/17/21 05:53 Iopamidol 612 Mg/Ml 100 Ml Bottle IVPUSH 02/17/21 05:40 100 ml ONETIME ONE Administration Ondansetron HCl 4 mg 02/17/21 04:18 02/17/21 04:34 Ondansetron 4 Mg/2 Ml Sdv IVPUSH 02/17/21 04:19 4 mg ONETIME ONE Administration Sodium Chloride 10 ml 02/17/21 05:39 02/17/21 05:53 Sodium Chloride 0.9% 10 Ml Sdv FLUSH 02/17/21 05:40 10 ml ONETIME ONE Administration - Re-Assessments/Exams Free Text/Narrative Re-Assessment/Exam: 02/17/21 04:19 As above, the patient was seen in this ED on 01/26/2021 for 2 days of epigastric and periumbilical discomfort. She had initially been seen at the walk-in clinic, who sent her over for additional work-up. She was found to be hemodynamically stable, afebrile, saturating 95% on room air. She did not allow the ED physician to palpate her upper abdomen. Work-up included a troponin, a urinalysis, CT of the abdomen and pelvis with oral and IV contrast, and an ECG. No causative abnormalities were found, however, she was found to have a periumbilical hernia. She was prescribed pantoprazole and sucralfate; she did not fill the prescription for pantoprazole, although she has been taking sucralfate 4 times a day, in addition to MiraLAX to treat her chronic constipation. On examination, her abdomen is soft with normal active bowel sounds, although she did not allow palpation of her upper abdomen. A urinalysis, obtained at triage, is remarkable for 3+ glucose and 1+ ketones, and is otherwise unremarkable. I have ordered a work-up that includes several blood tests, and a CT of the abdomen and pelvis with oral and IV contrast. In the meantime, the patient will be given some IV Dilaudid, IV Zofran, and IV fluid. 02/17/21 05:19 The patient's CBC is remarkable for leukocytosis of 17.32, but with only 1% bandemia. Her H/H are moderately depressed at 9.0/31.8, with remainder of her CBC being unremarkable. Her CMP is remarkable for an anion gap slightly elevated at 18.8, but with a bicarbonate normal at 22. She has hyperglycemia of 388. Her TBil is slightly elevated at 1.2, her AST/ALT are elevated at 388/168, respectively, and her alkaline phosphatase is modestly elevated at 291, with remainder of her CMP being unremarkable. Her magnesium level is slightly depressed at 1.7. Her lipase level is within normal limits at 84. Her CRP is slightly elevated at 1.1. Results of her CT of the abdomen pelvis with oral and IV contrast are still pending. 02/17/21 06:54 CT of the abdomen and pelvis with oral and IV contrast is read by Luis F as: 1. 10 mm stone in the distal common bile duct with ductal dilatation. 2. Myomatous uterus. 02/17/21 06:[address] Conroy at 06:56. She recommended transfer, as the patient will need either an ERCP or common bile duct exploration, neither of which is possible at this facility. I have ordered a swab for the SARS-CoV-2 virus. 02/17/21 07:08 We contacted [facility], [facility], at [facility], and none had any beds available. 02/17/21 07:13 Notified that [facility] is on diversion, as well. 02/17/21 07:35 I ordered 2 g of cefepime. I spoke to Tremaine at [facility] at 07:20. CT images pushed to [facility] at 07:30. Case then discussed with Dr. Dominguez, ED Physician at [facility], at 07:30. He accepted the patient for transfer to their ED. Due to the distance, the patient may need to be transported by air, but since so many hospitals are on diversion, the ambulance service may be willing to take her by ground. 02/17/21 07:40 Test results and our plan to transfer her to [facility] discussed with the patient. She is agreeable. 02/19/21 03:07 The patient's swab for the SARS-CoV-2 virus returned negative. She was transported to [facility] by ground ambulance. Departure - Departure Time of Disposition: 07:37 Condition: Good - Discharge Information *PRESCRIPTION DRUG MONITORING PROGRAM REVIEWED*: Not Applicable *COPY OF PRESCRIPTION DRUG MONITORING REPORT IN PATIENT SMITH: Not Applicable Sepsis Event Note (ED) - Evaluation Sepsis Screening Result: No Definite Risk
[2021-02-17] MEDS ORDERED: Iopamidol 612 MG/ML 100 ML Bottle IVPUSH ONE (05:39)
[2021-02-17] MEDS ORDERED: Sodium Chloride 0.9% 10 ML SDV FLUSH ONE (05:39)
[2021-02-17] MEDS ORDERED: Diatrizoate Meglumine/Diatrizoate Sodium 37% 120 ML Bottle PO ONE (05:39)
--- NOTE | 2021-02-17 06:59 | CT ---
CT abdomen and pelvis Technique: Multiple axial sections were obtained from above the dome of the diaphragm inferiorly through the pubic symphysis. Intravenous and oral contrast were utilized. Delayed images were also obtained through the bladder. Reconstructed coronal and sagittal images were also obtained. Comparison: Prior CT abdomen and pelvis exam of 01/26/21. Findings: Visualized lung bases show nothing acute. Liver contains no focal parenchymal abnormality. Air is noted within the intrahepatic biliary tree with evidence of prior cholecystectomy. Contrast is seen within the distal CBD which is refluxing from bowel. There is a filling defect within the distal CBD measuring approximately 7 mm compatible with CBD stone. Spleen size is normal. Very minimal amount of accessory splenic tissue is noted off the superior spleen. Adrenal glands show no nodule. Pancreas shows no discrete abnormality. Kidneys show symmetric contrast enhancement. No hydronephrosis or mass is seen. Minimal fat-containing hernia is noted above the umbilicus. Minimal amount of fat projects into the umbilical region. Abdominal aorta shows no aneurysm. No retroperitoneal adenopathy is seen. Uterus shows a low density lesion on the left side which is similar to previous exam compatible with leiomyoma. No additional pelvic mass or adenopathy is otherwise seen. Appendix is seen which is normal in size. Minimal increased stool is noted within the colon. Delayed images show contrast within the distal ureters and within the bladder. Bone window settings were reviewed. Mild degenerative change is noted. No acute osseous abnormality is appreciated. Impression: 1. Slight increased stool within the colon. 2. 7 mm CBD stone within the distal ureter. 3. Other findings which are stable as noted above. Nothing acute is otherwise appreciated. Diagnostic code #3 I agree with preliminary report from [facility] finalized on 02/17/21, 7:25 AM CDT
[2021-02-17] MEDS ORDERED: Cefepime 2 GM in Premix Bag 1 BAG IV STA (07:14)
== END 2021-02-17 08:51 ==
LOC: JD.ED 03:31
DX: K80.50 Calculus of bile duct without cholangitis or cholecystitis without obstruction (principal); E11.65 Type 2 diabetes mellitus with hyperglycemia; E78.00 Pure hypercholesterolemia, unspecified; K21.9 Gastro-esophageal reflux disease without esophagitis; E66.9 Obesity, unspecified; Z68.30 Body mass index [BMI] 30.0-30.9, adult; Z88.8 Allergy status to other drugs, medicaments and biological substances; Z88.1 Allergy status to other antibiotic agents; Z79.899 Other long term (current) drug therapy; Z20.822 Contact with and (suspected) exposure to COVID-19
CPT/HCPCS: 36415; 74177; 80053; 81003; 82977; 83690; 83735; 85007; 85027; 86140; 87635; 96365; 96375; 99285; J0692; J1170; J2405; J7030; Q9963; Q9967; U0002